=== PATIENT | male | born 1975 | race Asian ===

== ENCOUNTER 2022-05-15 09:39 | Outpatient (CLI) | payer BC ==
[2022-05-15] MEDS ORDERED: Iopamidol 300 61% 100 ML VIAL FS ONE (09:43)
== END 2022-05-15 09:40 | disposition home or self-care (01) ==
LOC: CSHCT 09:39
PROVIDERS: ATTEND Family Medicine
DX: R10.31 Right lower quadrant pain (principal)
CPT/HCPCS: 72193; Q9967

== ENCOUNTER 2025-07-12 14:15 | Outpatient (CLI) | payer OTHER | END 2025-07-12 14:16 | disposition home or self-care (01) | LOC: CSHCT 14:15 | PROVIDERS: ATTEND Family Medicine | DX: Z13.6 Encounter for screening for cardiovascular disorders (principal) | CPT/HCPCS: 75571 ==